=== PATIENT | male | born 1990 | race Caucasian/White ===

== ENCOUNTER 2019-02-19 02:02 | Emergency (ER) | payer SELFPAY ==
[~2019-02-19] VITALS: Ht 167.6 cm; Wt 74.8 kg
[2019-02-19 02:13] VITALS: BP 137/70
--- NOTE | 2019-02-19 02:14 | NUR ---
PT TAKEN TO BED 7.
--- NOTE | 2019-02-19 02:17 | NUR ---
PT TAKEN TO BED 7
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
--- NOTE | 2019-02-19 02:40 | NUR ---
PT WOUND ON FOREHEAD WAS CLEAND WITH NORMAL SALINE
--- NOTE | 2019-02-19 03:20 | NUR ---
SENT TO CT VIA WHEELCHAIR WITH [employer]
[2019-02-19 03:34] LABS: APPEARANCE,URINE CLEAR (CLEAR); BILIRUBIN,URINE NEGATIVE (NEGATIVE); BLOOD, URINE NEGATIVE (NEGATIVE); COLOR,URINE YELLOW (YELLOW); LEUKOCYTE ESTERASE ,URINE NEGATIVE (NEGATIVE); NITRITE, URINE NEGATIVE (NEGATIVE); UGLUCOSE NEGATIVE (NEGATIVE)
[2019-02-19 03:34] LABS: BASOPHILS % (AUTO) 0.2 % (0.0-2.0); EOSINOPHILS % (AUTO) 0.2 % (0.0-4.0); HEMATOCRIT 47.1 % (36-52); HEMOGLOBIN 16.2 g/dL (12.0-18.0); LYMPHOCYTES # (AUTO) 1.3 K/uL (2.0-11.5); LYMPHOCYTES % (AUTO) 13.2 % (20.5-51.1); MEAN CORPUSCULAR HEMOGLOBIN 31 pg (27-31); MEAN CORPUSCULAR HGB CONC 34 g/dL (33-37); MEAN CORPUSCULAR VOLUME 90.5 fL (80-94); MONOCYTES # (AUTO) 0.7 K/uL (0.8-1.0); MONOCYTES % (AUTO) 6.7 % (1.7-9.3); NEUTROPHILS # (AUTO) 8.1 K/uL (1.8-7.7); NEUTROPHILS % (AUTO) 79.7 % (42.2-75.2); PLATELET COUNT (AUTO) 205 K/uL (140-450); RED CELL DISTRIBUTION WIDTH 13.3 % (11.6-13.7); WHITE BLOOD COUNT (AUTO) 10.1 K/uL (4.8-10.8)
[2019-02-19 03:42] LABS: CARBON DIOXIDE 23.5 mmol/L (21-32); CREATININE 1.1 mg/dL (0.7-1.3); POTASSIUM 3.5 mmol/L (3.5-5.1)
[2019-02-19 03:48] LABS: ALBUMIN 4.3 g/dL (3.4-5.0); TOTAL BILIRUBIN 0.4 mg/dL (0.0-1.0)
--- NOTE | 2019-02-19 03:54 | NUR ---
PT RETURN FROM CT
[2019-02-19] MEDS ORDERED: LIDOCAINE/EPI MPF 2%1:200000 10 ML VIAL INJ ONE (04:50)
[2019-02-19] MEDS ORDERED: LIDOCAINE/PRILOCAINE 2.5% 5 GM TUBE TP ONE ×2 (04:50→05:14)
--- NOTE | 2019-02-19 05:04 | NUR ---
Dr. Farah examining patient.
[2019-02-19] MEDS ORDERED: fentaNYL 0.05 MG/ML VIAL IVP ONE (05:05)
[2019-02-19] MEDS ORDERED: NACL 0.9% 1,000 ML IV ONE (05:05)
[2019-02-19] MEDS ORDERED: LIDOCAINE/EPI 2% 1:100000 20 ML VIAL INJ ONE (05:13)
[2019-02-19] MEDS ORDERED: ONDANSETRON 4 MG/2 ML VIAL ONE (05:53)
[2019-02-19] MEDS ORDERED: ONDANSETRON 4 MG/2 ML VIAL IVP ONE (06:15)
--- NOTE | 2019-02-19 06:30 | NUR ---
Patient has a 2 cm laceration to FOREHEAD. Dr. HAYWOOD applied sutures using sterile technique. Edges well approximated. Site cleansed with NS. No bleeding noted. Pt tolerated well.
--- NOTE | 2019-02-19 07:15 | NUR ---
ALL RESULTS BACK AND NOTED BY ERMD AND FOR D/C
--- NOTE | 2019-02-19 07:26 | NUR ---
REPORT GIVEN TO HERVE LUJAN CHARGE
[2019-02-19 07:40] VITALS: BP 133/68
== END 2019-02-19 07:40 | disposition home or self-care (01) ==
LOC: MED 02:02
DX: S01.81XA Laceration without foreign body of other part of head, initial encounter (principal); Y04.0XXA Assault by unarmed brawl or fight, initial encounter; Y93.89 Activity, other specified; Y92.89 Other specified places as the place of occurrence of the external cause; Y99.8 Other external cause status
CPT/HCPCS: 12011; 36415; 70450; 70486; 71045; 72072; 72110; 72125; 73080; 80053; 81003; 85025; 96361; 96374; 96375; 99284; J2001; J2405; J3010; J7030

== ENCOUNTER 2019-02-22 17:25 | Emergency (ER) | payer SELFPAY ==
[~2019-02-22] VITALS: Ht 167.6 cm; Wt 74.9 kg
[2019-02-22 17:30] VITALS: BP 127/46
--- NOTE | 2019-02-22 17:52 | NUR ---
Pt taken to bed 4.
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
[2019-02-22 18:44] VITALS: BP 127/76
--- NOTE | 2019-02-22 18:44 | NUR ---
Patient discharged with v/s stable. Written and verbal after care instructions given and explained. Patient verbalized understanding. Ambulatory with steady gait. All questions addressed prior to discharge. Advised to follow up with PMD.
== END 2019-02-22 18:42 | disposition home or self-care (01) ==
LOC: MED 17:25
DX: S00.11XA Contusion of right eyelid and periocular area, initial encounter (principal); H11.31 Conjunctival hemorrhage, right eye; X58.XXXA Exposure to other specified factors, initial encounter; Y93.89 Activity, other specified; Y92.89 Other specified places as the place of occurrence of the external cause; Y99.8 Other external cause status
CPT/HCPCS: 99281; 99283

== ENCOUNTER 2019-02-25 17:37 | Emergency (ER) | payer SELFPAY ==
[~2019-02-25] VITALS: Ht 172.7 cm; Wt 69.9 kg
[2019-02-25 17:51] VITALS: BP 112/67
--- NOTE | 2019-02-25 17:57 | NUR ---
PT AMBULATED TO ER BED 06
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
--- NOTE | 2019-02-25 18:05 | NUR ---
Marcelino escoto in ED - 02/25/[address] at [address] Lim is removing suture at bedside.
--- NOTE | 2019-02-25 18:10 | NUR ---
Dr. Lim is removing suture at bedside.
[2019-02-25 18:18] VITALS: BP 114/61
--- NOTE | 2019-02-25 18:18 | NUR ---
Patient discharged by Dr. Lim with v/s stable. Written and verbal after care instructions given and explained. Patient verbalized understanding. Ambulatory with steady gait. All questions addressed prior to discharge. Advised to follow up with PMD.
== END 2019-02-25 18:18 | disposition home or self-care (01) ==
LOC: MED 17:37
DX: S01.81XD Laceration without foreign body of other part of head, subsequent encounter (principal); Z48.02 Encounter for removal of sutures; Y04.0XXD Assault by unarmed brawl or fight, subsequent encounter
CPT/HCPCS: 99283